=== PATIENT | male | born 1990 | race Two or more races ===

== ENCOUNTER → 2019-03-08 | Outpatient (CLI) | payer SELFPAY ==
--- NOTE | 2019-03-08 12:54 | REP ---
Clinical: Trauma with pain. Technique: AP and lateral views of the left forearm. Findings: No acute fracture or dislocation. Skeletal structures, joint spaces, and surrounding soft tissues are normal. Impression: No acute fracture dislocation. Electronically Signed by Vladislav Wilkins MD 03/08/2019 12:45 P
--- NOTE | 2019-03-08 12:55 | REP ---
Clinical: Left elbow pain status post fall . Technique: AP, lateral, bilateral oblique views of the left elbow. Findings: No acute fracture or dislocation is appreciated. Joint spaces and surrounding soft tissues appear normal. Lateral view demonstrates normal positioning to the anterior and posterior fat pads without evidence for effusion/hemarthrosis. No subcutaneous emphysema or foreign body identified. Impression: Normal left elbow radiographs. Electronically Signed by Vladislav Wilkins MD 03/08/2019 12:46 P
== END ==
LOC: M LRY 12:30
PROVIDERS: ATTEND Nurse Practitioner Family
DX: S49.92XA Unspecified injury of left shoulder and upper arm, initial encounter (principal); X58.XXXA Exposure to other specified factors, initial encounter; Y92.89 Other specified places as the place of occurrence of the external cause

== ENCOUNTER 2022-08-11 22:06 | Emergency (ER) | payer MEDICAID, SELFPAY ==
[~2022-08-11] VITALS: Ht 160 cm; Wt 81.2 kg
[2022-08-11] MEDS ORDERED: MORPHINE 4 MG/ML 1ML VIAL/SYRINGE IV ONE (22:20)
[2022-08-11] MEDS ORDERED: ISOVUE-370 76% 100ML VIAL As Ordered ONE (22:20)
[2022-08-11] MEDS ORDERED: NS 1,000 ML IV ONE (22:20)
[2022-08-11] MEDS ORDERED: BOOSTRIX/ADACEL VACCINE (DIPHTH/PERTUSS/ACELL/TETANUS) 0.5ML SYR IM.IMMUN ONE (22:25)
[2022-08-11] MEDS ORDERED: ceFAZolin SOD 2 GM in IV 1 EA IV ONE (22:25)
[2022-08-11 22:29] LABS: BASO % 0.3 % (0.0-1.0); EOS # 0.2 10^3/uL (0.0-0.5); EOS % 2.7 % (0.0-3.0); HEMATOCRIT 39.6 % (42.0-52.0); LYMPH # 3.3 10^3/uL (1.5-5.0); LYMPH % 53.1 % (24.0-44.0); MEAN CORPUSCULAR HGB CONC 32.8 g/dl (32.0-36.5); MEAN CORPUSCULAR VOLUME 85.2 fl (80.0-96.0); MONO # 0.5 10^3/uL (0.0-0.8); MONO % 7.9 % (2.0-8.0); NEUTROPHILS # 2.3 10^3/uL (1.5-8.5); NEUTROPHILS % 35.8 % (36.0-66.0); PLATELET COUNT, AUTOMATED 177 10^3/uL (150-450); RED BLOOD COUNT 4.65 10^6/uL (4.30-6.10); WHITE BLOOD COUNT 6.3 10^3/uL (4.0-10.0)
[2022-08-11 22:36] LABS: INR 0.92; PROTHROMBIN TIME 12.8 SECONDS (12.7-14.5)
[2022-08-11 22:37] LABS: PARTIAL THROMBOPLASTIN TIME 27.9 SECONDS (25.9-37.0)
[2022-08-11 22:44] LABS: ALBUMIN 4.4 GM/DL (3.2-5.2); ALT/SGPT 34 U/L (12-78); AMYLASE 82 U/L (25-115); BILIRUBIN,DIRECT 0.2 MG/DL (0.0-0.2); BILIRUBIN,TOTAL 1.1 MG/DL (0.2-1.0); BLOOD UREA NITROGEN 17 MG/DL (7-18); CALCIUM LEVEL 9.5 MG/DL (8.5-10.1); CARBON DIOXIDE LEVEL 25 MEQ/L (21-32); CHLORIDE LEVEL 106 MEQ/L (98-107); CK-MB VALUE MASS 3.1 NG/ML (<3.6); CREATININE FOR GFR 1.32 MG/DL (0.70-1.30); ETHYL ALCOHOL (ETHANOL) 0.004 % (0.000-0.010); GLOMERULAR FILTRATION RATE > 60.0 (>60); GLUCOSE, FASTING 131 MG/DL (70-100); LIPASE 152 U/L (73-393); MB/CK RELATIVE INDEX 0.45 (< OR =4); POTASSIUM SERUM 3.7 MEQ/L (3.5-5.1); SODIUM LEVEL 139 MEQ/L (136-145); TOTAL PROTEIN 7.6 GM/DL (6.4-8.2)
[2022-08-11] MEDS ORDERED: HYDROMORPHONE HCL 0.5 MG/ 0.5 ML SYRINGE (J1170 PER 1) IV ONE ×2 (22:45→23:30)
[2022-08-11 23:17] LABS: RSV AMPLIFICATION NEGATIVE (NEGATIVE)
[2022-08-11 23:23] VITALS: BP 139/82
[2022-08-12] MEDS ORDERED: UNRESOLVED CLARIFICATION ENTRY XX SCH (00:01)
== END 2022-08-11 23:58 | disposition short-term general hospital (02) ==
LOC: EDBD 22:06 → M ED 22:06
DX: S72.402B Unspecified fracture of lower end of left femur, initial encounter for open fracture type I or II (principal); S81.831A Puncture wound without foreign body, right lower leg, initial encounter; S71.132A Puncture wound without foreign body, left thigh, initial encounter; X95.9XXA Assault by unspecified firearm discharge, initial encounter; Y92.410 Unspecified street and highway as the place of occurrence of the external cause
CPT/HCPCS: 71045; 73552; 73706; 74177; 80047; 80048; 80076; 82077; 82150; 82550; 82553; 83690; 85025; 85610; 85730; 86850; 86900; 86901; 87631; 90471; 90715; 93041; 94760; 96365; 96375; 99291; J0690; J1170; J2270; Q9967